=== PATIENT | female | born 1955 | race Caucasian/White ===

== ENCOUNTER 2020-04-10 16:27 | Emergency (ER) | payer OTHER ==
[~2020-04-10 16:27] MED LIST: ACIDOPHILUS1 EAC4 PO; BACLOFEN 10MG T10 MG PO; GLUCOSAMINE; TURMERIC FORTE; VOLTAREN **OUT50 MG PO; ZYRTEC10 M3 PO; [UNRECOGNIZED DRUG - OTHER]; [UNRECOGNIZED DRUG - OTHER]; [UNRECOGNIZED DRUG - OTHER]
[2020-04-10 18:28] LABS: BASOPHIL 0.3 % (0-2); EOSINOPHIL 0.6 % (0-5); HCT 42.5 % (37.0-47.0); LYMPHOCYTE 21.2 % (15-48); MCHC 32.9 g/dL (32.0-36.0); MONOCYTE 6.9 % (0-12); MPV 8.7 fL (6.0-9.5); NEUTROPHIL 70.7 % (41-80); NRBC 0; PLT 222 K/uL (150-400); RBC 4.52 M/uL (4.20-5.40); RDW 13.1 % (11.5-14.0); WBC 8.7 K/uL (4.0-10.5)
[2020-04-10 18:43] LABS: BUN/CREAT RATIO (CALC) 18.6 RATIO; CREATININE 0.7 mg/dL (0.51-0.95); POTASSIUM 4.4 mmol/L (3.5-5.1)
[2020-04-10] MEDS ORDERED: AUGMENTIN 875-1 EACH PO (19:03)
== END 2020-04-10 19:17 | disposition home or self-care (01) ==
LOC: FER 16:27
PROVIDERS: Nurse Practitioner Family
DX: S61.451A Open bite of right hand, initial encounter (principal); W55.01XA Bitten by cat, initial encounter; Y92.009 Unspecified place in unspecified non-institutional (private) residence as the place of occurrence of the external cause
CPT/HCPCS: 36415; 80048; 85025; 99283